=== PATIENT | female | born 2000 | race Asian ===

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

== ENCOUNTER 2020-11-17 02:23 | Emergency (ER) | payer OTHER ==
[~2020-11-17] VITALS: Ht 180.3 cm; Wt 104.3 kg
[2020-11-17 03:10] VITALS: BP 141/71; TEMP 98.7
== END 2020-11-17 03:10 | disposition home or self-care (01) ==
LOC: ED 02:23
DX: H92.02 Otalgia, left ear (principal); H61.22 Impacted cerumen, left ear
CPT/HCPCS: 96372; 99283; J0696; J1885

== ENCOUNTER 2021-01-26 22:16 | Emergency (ER) | payer OTHER ==
[2021-02-02 16:41] LABS: POTASSIUM 3.7 mmol/L (3.6-5.2)
[2021-02-02 16:43] LABS: PLATELET COUNT 342 K/uL (152-353)
== END 2021-01-27 02:15 | disposition home or self-care (01) ==
LOC: ED 22:16
PROVIDERS: Family Medicine
DX: R10.84 Generalized abdominal pain (principal); Z32.01 Encounter for pregnancy test, result positive
CPT/HCPCS: 36415; 80053; 81000; 81025; 84702; 85008; 85027; 99283; J1885

== ENCOUNTER 2021-11-15 06:58 | Emergency (ER) | payer OTHER ==
[~2021-11-15] VITALS: Ht 180.3 cm; Wt 106.7 kg
[2021-11-15 08:20] VITALS: BP 128/55; TEMP 98.4
== END 2021-11-15 08:21 | disposition home or self-care (01) ==
LOC: ED 06:58
DX: J06.9 Acute upper respiratory infection, unspecified (principal); J02.0 Streptococcal pharyngitis; Z20.822 Contact with and (suspected) exposure to COVID-19
CPT/HCPCS: 87502; 87635; 87651; 96372; 99283; J0696; J1100; U0003

== ENCOUNTER 2022-10-26 15:36 | Emergency (ER) | payer OTHER ==
[~2022-10-26] VITALS: Ht 180.3 cm; Wt 113.4 kg
[2022-10-26 15:40] VITALS: BP 142/81; TEMP 98.4
== END 2022-10-26 17:17 | disposition home or self-care (01) ==
LOC: ED 15:36
PROC: 2W3RX1Z Immobilization of Left Lower Leg using Splint (ICD-10-PCS; principal; 2022-10-26)
DX: S96.812A Strain of other specified muscles and tendons at ankle and foot level, left foot, initial encounter (principal); W10.8XXA Fall (on) (from) other stairs and steps, initial encounter; Y92.89 Other specified places as the place of occurrence of the external cause
CPT/HCPCS: 81025; 99283

== ENCOUNTER 2022-11-13 20:08 | Emergency (ER) | payer OTHER ==
[~2022-11-13] VITALS: Ht 180.3 cm; Wt 112.5 kg
[2022-11-13 20:12] VITALS: BP 132/80; TEMP 99.6
[2022-11-13 20:37] LABS: PLATELET COUNT 276 K/uL (152-353)
== END 2022-11-13 21:25 | disposition home or self-care (01) ==
LOC: ED 20:08
PROVIDERS: Family Medicine
DX: J02.0 Streptococcal pharyngitis (principal)
CPT/HCPCS: 36415; 85027; 87651; 96372; 99282; J1885

== ENCOUNTER 2023-01-01 12:51 | Emergency (ER) | payer OTHER ==
[~2023-01-01] VITALS: Ht 180.3 cm; Wt 119.3 kg
[2023-01-01 13:15] VITALS: BP 152/68; TEMP 98.2
[2023-01-01 13:48] LABS: PLATELET COUNT 281 K/uL (152-353)
[2023-01-01 13:52] LABS: POTASSIUM 3.5 mmol/L (3.6-5.2)
== END 2023-01-01 14:54 | disposition home or self-care (01) ==
LOC: ED 12:51
PROVIDERS: Family Medicine
DX: R10.13 Epigastric pain (principal); E87.6 Hypokalemia; K21.9 Gastro-esophageal reflux disease without esophagitis; D50.9 Iron deficiency anemia, unspecified
CPT/HCPCS: 80053; 80307; 81000; 82150; 82550; 83690; 85027; 93005; 99283